=== PATIENT | female | born 1990 | race Two or more races ===

== ENCOUNTER → 2024-09-05 | Outpatient (CLI) | payer MEDICAID, SELFPAY ==
--- NOTE | 2024-09-05 09:30 | XR_ITS ---
Examination: Esophagram standard Fluoroscopy 16 spot fluoroscopic films of the esophagus Upright PA chest single view Upright soft tissue lateral neck single view Date and time: 05/08/2024 0951 hours INDICATIONS: Preop bariatric surgery. FINDINGS: Normal heart size Lungs are clear Normal epiglottis on the single soft tissue lateral view the neck Patient swallowed thin barium with 16 spot fluoroscopic films of the esophagus Fluoroscopy 0.10 minute Primary peristaltic esophageal waves No gastroesophageal reflux No constricting esophageal lesion IMPRESSION: Negative study
== END | disposition home or self-care (01) ==
PROVIDERS: Referring Provider Surgery; Visit Provider Surgery
DX: K21.9 Gastro-esophageal reflux disease without esophagitis (principal); D69.6 Thrombocytopenia, unspecified; E66.01 Morbid (severe) obesity due to excess calories
CPT/HCPCS: 74220; A4649